=== PATIENT | female | born 2005 | race Caucasian/White ===

== ENCOUNTER 2023-06-28 05:42 | Emergency (ER) | payer SELFPAY ==
[~2023-06-28] VITALS: Ht 157.5 cm; Wt 61.4 kg
[2023-06-28 05:45] VITALS: TEMP 98.2
[2023-06-28] MEDS ORDERED: AKTOB 5 ML5 ML OD (06:03)
[2023-06-28 06:44] VITALS: BP 110/77; PULSE 80
== END 2023-06-28 06:45 | disposition home or self-care (01) ==
LOC: COL.ER 05:42
DX: H10.89 Other conjunctivitis (principal)